=== PATIENT | female | born 1940 | race Hispanic/Latino ===

== ENCOUNTER 2023-11-13 10:54 | Emergency (ER) | payer MEDICARE, OTHER | END 2023-11-13 14:10 | disposition home or self-care (01) | LOC: CSHERS 10:54 | DX: S52.571A Other intraarticular fracture of lower end of right radius, initial encounter for closed fracture (principal); I10 Essential (primary) hypertension; W18.09XA Striking against other object with subsequent fall, initial encounter | CPT/HCPCS: 70450; 72125 ==